=== PATIENT | male | born 1950 | race Caucasian/White ===

== ENCOUNTER 2018-08-15 08:28 | Outpatient (CLI) | payer MEDICARE, OTHER ==
--- NOTE | 2018-08-15 09:44 | ULT ---
RENAL SONOGRAM: DATE: 08/15/2018. HISTORY: Proteinuria. FINDINGS: The right kidney measures 13 cm x 7.5 cm with the left kidney measuring 12.7 cm x 6.9 cm. There is a small 1.9 cm anechoic structure at the superior pole right kidney with a 1.6 cm anechoic s tructure seen in the inferior pole right kidney, each of which demonstrates sonographic characteristi cs most compatible with cysts. There is also a small anechoic structure seen in the superior pole le ft kidney measuring 1.4 cm also demonstrating characteristics most compatible with a cyst. There is no hydronephrosis, renal calculus, or perinephric fluid collection identified. The urinary bladder is incompletely distended but otherwise grossly normal in appearance. The ureter al jets are visualized bilaterally. IMPRESSION: 1. Bilateral renal cysts. 2. No evidence of hydronephrosis. POS: [id number]
== END 2018-08-15 08:29 | disposition home or self-care (01) ==
LOC: BICULT 08:28
PROVIDERS: ATTEND Internal Medicine Nephrology
DX: R80.9 Proteinuria, unspecified (principal); N28.1 Cyst of kidney, acquired
CPT/HCPCS: 76770